=== PATIENT | male | born 1955 | race African-American/Black ===

== ENCOUNTER 2021-02-15 06:44 | Day surgery (SDC) | payer MEDICARE ==
[~2021-02-15] VITALS: Ht 167.6 cm; Wt 74.4 kg
[~2021-02-15 06:44] MED LIST: ALBUTEROL1.25 MG/3 IN; ALBUTEROL108 MCG/AC IN; ARNUITY EL50 MCG/ACT; ASPIRIN325 MG PO; CYCLOBENZAPRINE10 MG PO; FINASTERIDE5 MG PO; LIPITOR10 M1 PO; LOSARTAN POTASS50 MG PO; MAVYRET PO; MAXZIDE-2537.5 MG/TA PO; NORVASC5 M1 PO; OMEPRAZOLE20 MG PO; PREDNISONE10 MG PO; PROTONIX20 M1 PO; TAMSULOSIN HCL0.4 MG PO; TESSALON PERLE100 MG PO; VITAMIN D2400 UNIT PO; WIXELA INHUB 251 AER IN
[2021-02-15 09:50] VITALS: BP 141/78
== END 2021-02-15 10:10 | disposition home or self-care (01) ==
LOC: ENDO 06:44
PROVIDERS: ATTEND Surgery
PROC: 0DJD8ZZ Inspection of Lower Intestinal Tract, Via Natural or Artificial Opening Endoscopic (ICD-10-PCS; principal; 2021-02-15)
DX: Z12.11 Encounter for screening for malignant neoplasm of colon (principal); I10 Essential (primary) hypertension; Z86.73 Personal history of transient ischemic attack (TIA), and cerebral infarction without residual deficits